=== PATIENT | female | born 1965 | race Caucasian/White ===

== ENCOUNTER 2018-02-26 12:43 | Outpatient (CLI) | payer BC | END 2018-02-26 12:44 | disposition home or self-care (01) | LOC: BICULT 12:43 | PROVIDERS: ATTEND Internal Medicine | DX: R10.11 Right upper quadrant pain (principal); R74.8 Abnormal levels of other serum enzymes; K76.0 Fatty (change of) liver, not elsewhere classified | CPT/HCPCS: 76705 ==

== ENCOUNTER 2018-05-18 15:16 | Inpatient (IN) | payer BC ==
[2018-05-18] MEDS ORDERED: Ketorolac Tromethamine 30 MG/ML VIAL ONE (15:54)
--- NOTE | 2018-05-18 16:12 | RAD ---
TWO VIEWS OF THE LEFT HIP 05/18/18 COMPARISON: None. HISTORY: Left hip pain and infection diagnosed yesterday. FINDINGS: Two views left hip shows no evidence of acute fracture or dislocation. No degenerative changes are se en. No soft tissue swelling is present. IMPRESSION: Unremarkable exam. POS: [facility]
[2018-05-18 16:26] LABS: #Lymphocytes 1.3 thou/uL (1.20-3.40); #Monocytes 0.9 thou/uL (0.11-0.59); #Neutrophils 13.9 thou/uL (1.40-6.50); %Basophils 0.1 % (0.0-1.0); %Eosinophils 0.1 % (0.0-10.0); %Lymphocytes 8.1 % (21.0-51.0); %Monocytes 5.3 % (0.0-10.0); %Neutrophils 86.4 % (42.0-75.0); Hemoglobin 12.4 g/dL (12.0-16.0); Mean Corpuscular HGB CONC 33.3 g/dL (32.0-36.0); Mean Corpuscular Hemoglobin 30.8 pg (27.0-31.0); Mean Corpuscular Volume 92.4 fL (78.0-98.0); Platelet Count 167 thou/uL (130-400); RBC Distribution Width 12.4 % (11.5-14.5); Red Blood Cell (RBC) Count 4.04 mill/uL (4.20-5.40); White Blood Cell (WBC) Count 16.1 thou/uL (4.8-10.8)
[2018-05-18 16:50] LABS: ALT (SGPT) 41 U/L (8-55); AST (SGOT) 28 U/L (5-34); Albumin 4.1 g/dL (3.5-5.0); Alkaline Phosphatase 69 U/L (40-150); Anion Gap 13 mmol/L (10-20); BHCG - Serum Negative (NEGATIVE); BUN (Urea Nitrogen) 13 mg/dL (9.8-20.1); Bilirubin, Total 0.6 mg/dL (0.2-1.2); Calc. Creatinine Clearance 0 mL/min (70-130); Calcium 9.3 mg/dL (7.8-10.44); Carbon Dioxide 23 mmol/L (22-29); Chloride 102 mmol/L (98-107); Estimated GFR-MDRD 88; Globulin 3.4 g/dL (2.4-3.5); Glucose 138 mg/dL (70-105); Potassium 3.8 mmol/L (3.5-5.1); Pregs Control Background? CLEAR/WHITE (CLR/WHITE); Pregs Control Bar Appear? YES (CONTROL BAR); Protein, Total 7.5 g/dL (6.0-8.3); Sodium 134 mmol/L (136-145)
[2018-05-18] MEDS ORDERED: Piperacillin/Tazobactam 4.5 GM VIAL ONE (17:25)
[2018-05-18] MEDS ORDERED: Acetaminophen 325 MG TAB PO PRN (20:18)
[2018-05-18] MEDS ORDERED: HYDROcodone/Acetaminophen 5/325 mg Tablet PO PRN (20:18)
[2018-05-18] MEDS ORDERED: Ondansetron PF 4 MG/2 ML Vial IVP PRN (20:18)
[2018-05-18] MEDS ORDERED: Sodium Chloride 0.9% 1,000 ML IV SCH (20:18)
[2018-05-18] MEDS ORDERED: Ondansetron ODT 4 MG TAB SL PRN (20:18)
[2018-05-18] MEDS ORDERED: Ketorolac Tromethamine 30 MG/ML VIAL IVP PRN (20:19)
[2018-05-18 21:25] VITALS: BMI 25.0
[2018-05-18] MEDS: HYDROcodone/Acetaminophen 5/325 mg Tablet PO PRN (21:39)
[2018-05-18] MEDS ORDERED: Piperacillin/Tazobactam 3.375 GM in Sodium Chloride 0.9% 100 ML IVPB SCH (23:59)
[2018-05-19] MEDS ORDERED: Piperacillin/Tazobactam 3.375 GM in Sodium Chloride 0.9% 100 ML IVPB SCH (01:00)
[2018-05-19] MEDS ORDERED: Vancomycin HCl 1 GM in Premix Bag 1 BAG IVPB SCH (04:00)
[2018-05-19] MEDS: HYDROcodone/Acetaminophen 5/325 mg Tablet PO PRN (04:01)
[2018-05-19 05:40] LABS: #Lymphocytes 1.3 thou/uL (1.20-3.40); #Monocytes 0.6 thou/uL (0.11-0.59); #Neutrophils 8.9 thou/uL (1.40-6.50); %Basophils 0.2 % (0.0-1.0); %Eosinophils 0.1 % (0.0-10.0); %Lymphocytes 12.4 % (21.0-51.0); %Monocytes 5.2 % (0.0-10.0); %Neutrophils 82.1 % (42.0-75.0); Hemoglobin 10.7 g/dL (12.0-16.0); Mean Corpuscular HGB CONC 33.6 g/dL (32.0-36.0); Mean Corpuscular Volume 92.3 fL (78.0-98.0); Mean Platelet Volume 10.1 fL (7.4-10.4); Platelet Count 136 thou/uL (130-400); RBC Distribution Width 12.2 % (11.5-14.5); Red Blood Cell (RBC) Count 3.46 mill/uL (4.20-5.40); White Blood Cell (WBC) Count 10.8 thou/uL (4.8-10.8)
[2018-05-19] MEDS ORDERED: VANCOMYCIN IVPB SCH (10:30)
[2018-05-19] MEDS: Piperacillin/Tazobactam 3.375 GM in Sodium Chloride 0.9% 100 ML IVPB SCH ×3 (10:53→21:39)
[2018-05-19] MEDS ORDERED: Acetaminophen 325 MG TAB PO PRN (14:31)
[2018-05-19] MEDS: Ibuprofen 200 MG TAB PO PRN ×2 (14:37→20:32)
[2018-05-19] MEDS: Vancomycin HCl 1 GM in Premix Bag 1 BAG IVPB SCH (15:32)
[2018-05-19] MEDS ORDERED: HYDROcodone/Acetaminophen 5/325 mg Tablet PO PRN (18:05)
[2018-05-19] MEDS ORDERED: Gemfibrozil 600 MG TAB PO SCH (21:00)
[2018-05-19] MEDS ORDERED: metFORMIN 500 MG TAB PO SCH (21:00)
[2018-05-19] MEDS ORDERED: Venlafaxine HCl XR 150 MG CAP PO SCH (21:00)
[2018-05-19] MEDS ORDERED: Atorvastatin Calcium 20 MG TAB PO SCH (21:00)
[2018-05-20] MEDS: Piperacillin/Tazobactam 3.375 GM in Sodium Chloride 0.9% 100 ML IVPB SCH ×3 (03:15→17:11)
[2018-05-20] MEDS: Vancomycin HCl 1 GM in Premix Bag 1 BAG IVPB SCH ×2 (04:21→15:45)
[2018-05-20 05:34] LABS: #Eosinphils 0.1 thou/uL (0.0-0.7); #Lymphocytes 1.7 thou/uL (1.20-3.40); #Monocytes 0.6 thou/uL (0.11-0.59); #Neutrophils 6.6 thou/uL (1.40-6.50); %Basophils 0.3 % (0.0-1.0); %Eosinophils 1.6 % (0.0-10.0); %Lymphocytes 18.8 % (21.0-51.0); %Monocytes 6.5 % (0.0-10.0); %Neutrophils 72.7 % (42.0-75.0); Hemoglobin 10.8 g/dL (12.0-16.0); Mean Corpuscular HGB CONC 35.3 g/dL (32.0-36.0); Mean Corpuscular Hemoglobin 32.3 pg (27.0-31.0); Mean Corpuscular Volume 91.4 fL (78.0-98.0); Mean Platelet Volume 10.1 fL (7.4-10.4); Platelet Count 140 thou/uL (130-400); Red Blood Cell (RBC) Count 3.34 mill/uL (4.20-5.40)
[2018-05-20 05:51] LABS: Hemoglobin A1c 5.9 % (4.0-6.0)
--- NOTE | 2018-05-20 07:52 | HP ---
CHIEF COMPLAINT ON ADMISSION: Left thigh cellulitis. HISTORY OF PRESENT ILLNESS: The patient is a 52-year-old female, who had ran into her mother's dresser 2 days prior to admission. She injured her left hip severely, but did not seek medical attention until the following day when she was seen out at [facility] ER visit. She was diagnosed with cellulitis and placed on Keflex. She continued to worsen to the point where she finally came into the ER on the day of admission having extreme erythema and barely able to walk on the left hip. The left hip has developed significantly with swelling, erythema, heat, and the patient has developed fever. She does not know when her last tetanus shot was. She does not have a history of prior cellulitis or abscesses. X-ray in the ER failed to show any trauma to the left hip. CBC noted the white count to be 16,000. She was admitted for failure of outpatient treatment of left hip cellulitis. PAST MEDICAL HISTORY: Includes borderline diabetes, controlled mainly with diet. She does have a history of dyslipidemia with high cholesterol and high triglycerides. PAST SURGICAL HISTORY: Includes hysterectomy. PSYCHIATRIC HISTORY: She has no previous psychiatric history. 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 She denies drug or alcohol use. She has no smoking history. ALLERGIES: SHE HAS NO KNOWN DRUG ALLERGIES. CURRENT MEDICATIONS: Include the aforementioned Keflex 500 q.i.d. REVIEW OF SYSTEMS: GENERAL: Admits to fever, chills, and malaise. HEENT: Denies any sores or drainage from eyes, ears, nose, or throat. CARDIOVASCULAR: Denies chest pain or palpitations. RESPIRATORY: Denies any cough or dyspnea. GASTROINTESTINAL: Denies any nausea, vomiting, or diarrhea. GENITOURINARY: Denies any dysuria, blood in urine or stool. SKIN: Has the aforementioned rash noted on her left hip. MUSCULOSKELETAL: Severe pain also in the left hip (x-ray negative). NEUROLOGIC: Denies any altered mentation, headaches, blurred vision, or paresthesia, anesthesia. ENDOCRINE: Denies any swelling of any lymphatics. No enlargement or bruising. PHYSICAL EXAMINATION: At the time of admission; VITAL SIGNS: Blood pressure 118/70, pulse 107, respirations 20, temperature 99.1, pain scale 10/10 regarding the left hip, and O2 sat 99% on room air. GENERAL: This is a well-developed and well-nourished female, alert, oriented, and cooperative. HEENT: Normocephalic and atraumatic. Pupils equal, round, and reactive to light. Extraocular muscles are intact. TMs, nares, and pharynx are clear. NECK: Supple. Trachea midline. CHEST: Clear to auscultation. HEART: Regular rate and rhythm. No murmur. BREASTS: Deferred. ABDOMEN: Soft and nontender without organomegaly. GENITOURINARY: Deferred. EXTREMITIES: Without clubbing, cyanosis, or edema. SKIN: Shows the aforementioned left hip erythema with heat in . NEUROLOGIC: Cranial nerves are intact. Sensory exam is grossly intact. Mental status is nonfocal, at baseline. Unable to test gait and cerebellar function at this time. LABORATORY DATA: WBCs initially 16,000 with a left shift. X-ray of the left hip unremarkable. ASSESSMENT: 1. Left hip cellulitis, having failed outpatient treatment. 2. Borderline diabetes. 3. History of dyslipidemia. PLAN: The patient's blood cultures have been obtained. She will be maintain on Zosyn and vancomycin on scheduled basis and serially be examined. She will also be provided with pain management. Job ID: [id number]
[2018-05-20] MEDS: Ibuprofen 200 MG TAB PO PRN (12:13)
[2018-05-20 15:29] LABS: Vancomycin, Trough 7.1 ug/mL
[2018-05-20 16:17] VITALS: BP 114/73; TEMP 99.3
[2018-05-20] MEDS ORDERED: Vancomycin HCl 1 GM in Premix Bag 1 BAG IVPB SCH (23:59)
== END 2018-05-20 18:23 | disposition home or self-care (01) | DRG 603 ==
LOC: ERS 15:16 → T4-B 18:14
PROVIDERS: ADMIT Specialist; ATTEND Specialist
DX: L03.116 Cellulitis of left lower limb (principal); R73.03 Prediabetes; E78.5 Hyperlipidemia, unspecified; S79.812A Other specified injuries of left hip, initial encounter; W22.03XA Walked into furniture, initial encounter
CPT/HCPCS: 36415; 80053; 80202; 82465; 83036; 83605; 84703; 85025; 85652; 86140; 87040; 96365; 96367; 96375; J1885; J2543; J3370; J7050

== ENCOUNTER 2018-05-24 11:31 | Inpatient (IN) | payer BC ==
[2018-05-24] MEDS ORDERED: Acetaminophen 325 MG TAB PO PRN (12:22)
[2018-05-24 12:30] VITALS: BMI 24.0
[2018-05-24] MEDS ORDERED: Vancomycin HCl 1 GM in Premix Bag 1 BAG IVPB SCH (12:30)
[2018-05-24 12:47] LABS: #Basophils 0.1 thou/uL (0.0-0.2); #Eosinphils 0.2 thou/uL (0.0-0.7); #Lymphocytes 2.2 thou/uL (1.20-3.40); #Monocytes 0.8 thou/uL (0.11-0.59); #Neutrophils 6.6 thou/uL (1.40-6.50); %Basophils 0.8 % (0.0-1.0); %Eosinophils 2.2 % (0.0-10.0); %Lymphocytes 22.2 % (21.0-51.0); %Monocytes 7.6 % (0.0-10.0); %Neutrophils 67.2 % (42.0-75.0); Hemoglobin 11.6 g/dL (12.0-16.0); Mean Corpuscular HGB CONC 31.9 g/dL (32.0-36.0); Mean Corpuscular Hemoglobin 29.3 pg (27.0-31.0); Mean Corpuscular Volume 91.7 fL (78.0-98.0); Mean Platelet Volume 8.1 fL (7.4-10.4); Platelet Count 310 thou/uL (130-400); RBC Distribution Width 12.3 % (11.5-14.5); Red Blood Cell (RBC) Count 3.95 mill/uL (4.20-5.40); White Blood Cell (WBC) Count 9.9 thou/uL (4.8-10.8)
[2018-05-24 13:15] LABS: ALT (SGPT) 59 U/L (8-55); AST (SGOT) 39 U/L (5-34); Albumin 3.8 g/dL (3.5-5.0); Alkaline Phosphatase 72 U/L (40-150); Anion Gap 12 mmol/L (10-20); BUN (Urea Nitrogen) 13 mg/dL (9.8-20.1); Bilirubin, Total 0.2 mg/dL (0.2-1.2); Calc. Creatinine Clearance 87 mL/min (70-130); Calcium 10.1 mg/dL (7.8-10.44); Carbon Dioxide 29 mmol/L (22-29); Chloride 101 mmol/L (98-107); Estimated GFR-MDRD 78; Globulin 3.5 g/dL (2.4-3.5); Glucose 179 mg/dL (70-105); Potassium 4.3 mmol/L (3.5-5.1); Protein, Total 7.3 g/dL (6.0-8.3); Sodium 138 mmol/L (136-145)
[2018-05-24] MEDS ORDERED: Heparin 1,000 UNITS/ML VIAL ONE (14:31)
[2018-05-24] MEDS ORDERED: Piperacillin/Tazobactam 3.375 GM in Sodium Chloride 0.9% 100 ML IVPB SCH ×2 (15:00→18:00)
--- NOTE | 2018-05-24 15:21 | ULT ---
LEFT HIP ULTRASOUND: Date: 05/24/18 HISTORY: Recent trauma. Bruising and swelling. Erythema. COMPARISON: None. TECHNIQUE: Targeted sonographic imaging of the left hip was performed. There is evidence of soft tissue swelling and edema. There is no evidence of a drainable abscess or fluid collection. IMPRESSION: No evidence of abscess or drainable fluid collection. There is evidence of soft tissue swelling and e lianna. POS: [facility]
[2018-05-24 15:59] LABS: Bilirubin Negative (Negative); Blood, Urine Negative (Negative); Clarity CLEAR (Clear); Glucose, Urine (Dipstick) Negative (Negative); Leukocyte Negative (Negative); Nitrite Negative (Negative); Protein, Urine (Dipstick) Negative (Neg-Trace); Specific Gravity, Urine 1.006 (1.002-1.036); Urobilinogen 0.2 mg/dL (0.2-1.0); pH, Urine 6.5 (5.0-9.0)
[2018-05-24 16:00] LABS: Bacteria/HPF None Seen HPF (None Seen); Hyaline Casts/LPF 0-3 HYALINE CAST LPF (0-3 Hyaline); RBC/HPF 0-3 HPF (0-3); Squamous Epithelial None Seen HPF (0-3); WBC/HPF None Seen HPF (0-3)
[2018-05-24] MEDS: Vancomycin HCl 1 GM in Premix Bag 1 BAG IVPB SCH (16:54)
[2018-05-24] MEDS: Piperacillin/Tazobactam 3.375 GM in Sodium Chloride 0.9% 100 ML IVPB SCH ×2 (17:16→23:18)
[2018-05-24] MEDS: Atorvastatin Calcium 20 MG TAB PO SCH (19:55)
[2018-05-24] MEDS: metFORMIN 500 MG TAB PO SCH (19:55)
[2018-05-24] MEDS: Fentanyl 100 MCG/2 ML VIAL SLOW IVP PRN (19:55)
--- NOTE | 2018-05-25 01:44 | HP ---
CHIEF COMPLAINT ON ADMISSION: Cellulitis, left hip. HISTORY OF PRESENT ILLNESS: The patient is a 52-year-old female, who has had a left hip infection that has been ongoing for approximately 10 days. She was seen last week in the emergency room of [facility] where she was placed on Keflex. The lesion continued to worsen, so she came and saw Dr. Jack. She returned to the ER and was admitted over the weekend. During that hospitalization, she received vancomycin and Zosyn and had a very robust response to the antibiotics. It was thought that she could be reattempted outpatient treatment with Omnicef 300 b.i.d. and clindamycin 300 t.i.d. during the week after discharge; however, the patient has continued to worsen with return of fever, return of pain. The actual size of the cellulitis has shrunk, but it has hardened and become impossible to live with due to the pain and recurrent fever. She was seen on the day of admission in Dr. Jack' office, where it was obvious due to her frustration that she needed to be rehospitalized and at this admission treated with a more complete round of IV antibiotics. PAST MEDICAL HISTORY: Significant for borderline diabetes, controlled mainly with diet and dyslipidemia. PAST SURGICAL HISTORY: Includes total hysterectomy. PSYCHIATRIC HISTORY: There is no psychiatric history. 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 She denies drug or alcohol use. She has no smoking history. ALLERGIES: SHE HAS NO KNOWN DRUG ALLERGIES. MEDICATIONS ON ADMISSION: Included, 1. Omnicef 300 b.i.d. 2. Clindamycin 300 t.i.d. 3. Simvastatin 40 mg at bedtime. 4. Effexor 150 mg daily. 5. Metformin 1000 mg at bedtime. 6. Lopid 600 mg 2 every day. 7. Ibuprofen 400 mg every 6 hours p.r.n. fever. REVIEW OF SYSTEMS: GENERAL: She has had fever, pain, malaise, and generalized weakness. HEENT: Positive for headache. Denies drainage or sores in the ears, nose, or throat. CHEST: Denies cough or shortness of breath. CARDIOVASCULAR: Denies palpitations or chest pain. GASTROINTESTINAL: Denies nausea, vomiting, or diarrhea. GENITOURINARY: Denies dysuria, frequency, or blood in urine or stool. MUSCULOSKELETAL: The patient's left hip pain has significantly improved since the previous hospitalization and there are no other acute joints with pain or swelling. SKIN: Large area of erythema, heat, tenderness, and swelling over the left hip. It has been marked with permanent marker and really shows less overall size from the previous marcations, it is much harder, firm and more tender than it was before and there was concern for abscess formation. NEUROLOGIC: No confusion, paresthesias, dysthesia, or hypesthesia. PHYSICAL EXAMINATION: At the time of admission; VITAL SIGNS: Blood pressure 105/69, pulse 75, respirations 16, temperature 98, and 97% O2 sat on room air. GENERAL: This is a well-developed and well-nourished female, alert, oriented, and cooperative. HEENT: Normocephalic and atraumatic. Pupils equal, round, and reactive to light. TMs, nares, and pharynx are clear. NECK: Supple. Trachea midline. CHEST: Clear to auscultation. BREASTS: Deferred. HEART: Regular rate and rhythm without murmur. ABDOMEN: Soft and nontender without organomegaly. GENITOURINARY: Deferred. EXTREMITIES: Left hip with swollen area of erythema, heat, tenderness, and induration concerning for possible abscess formation. Remainder of upper and right lower extremity without clubbing, cyanosis, or edema. Demonstrates normal range of motion, pain free. NEUROLOGIC: Cranial nerves are intact. Gait is painful using the left hip. Sensory exam is intact. Mental status is clear. LABORATORY DATA: Lab work is pending at the time of admission. ASSESSMENT: 1. Recurrent cellulitis of left hip, resistant to outpatient treatment. 2. Noninsulin-dependent diabetes. PLAN: Will be rehospitalized with utilization of IV vancomycin and Zosyn. Serial reevaluation and ultrasound of the swollen tissue to assess for abscess formation. Job ID: [id number] [facility]
[2018-05-25] MEDS ORDERED: Vancomycin HCl 1 GM in Premix Bag 1 BAG IVPB SCH (02:00)
[2018-05-25] MEDS: Vancomycin HCl 1 GM in Premix Bag 1 BAG IVPB SCH ×2 (03:23→15:56)
[2018-05-25] MEDS: Fentanyl 100 MCG/2 ML VIAL SLOW IVP PRN ×2 (03:25→20:30)
[2018-05-25] MEDS: Piperacillin/Tazobactam 3.375 GM in Sodium Chloride 0.9% 100 ML IVPB SCH ×4 (05:32→22:59)
[2018-05-25 06:20] LABS: #Eosinphils 0.3 thou/uL (0.0-0.7); #Lymphocytes 2.4 thou/uL (1.20-3.40); #Monocytes 0.8 thou/uL (0.11-0.59); %Basophils 0.2 % (0.0-1.0); %Eosinophils 2.7 % (0.0-10.0); %Lymphocytes 25.1 % (21.0-51.0); %Monocytes 8.5 % (0.0-10.0); %Neutrophils 63.6 % (42.0-75.0); Hemoglobin 11.7 g/dL (12.0-16.0); Mean Corpuscular Hemoglobin 29.5 pg (27.0-31.0); Mean Corpuscular Volume 92.2 fL (78.0-98.0); Mean Platelet Volume 8.5 fL (7.4-10.4); Platelet Count 308 thou/uL (130-400); RBC Distribution Width 12.3 % (11.5-14.5); Red Blood Cell (RBC) Count 3.97 mill/uL (4.20-5.40); White Blood Cell (WBC) Count 9.4 thou/uL (4.8-10.8)
[2018-05-25] MEDS: Venlafaxine HCl XR 150 MG CAP PO SCH (08:00)
[2018-05-25] MEDS: Atorvastatin Calcium 20 MG TAB PO SCH (20:29)
[2018-05-25] MEDS: metFORMIN 500 MG TAB PO SCH (20:30)
[2018-05-26] MEDS: Piperacillin/Tazobactam 3.375 GM in Sodium Chloride 0.9% 100 ML IVPB SCH ×4 (04:07→23:33)
[2018-05-26 04:17] LABS: Vancomycin, Trough 11.3 ug/mL
[2018-05-26 04:24] LABS: #Eosinphils 0.2 thou/uL (0.0-0.7); #Lymphocytes 2.9 thou/uL (1.20-3.40); #Monocytes 0.8 thou/uL (0.11-0.59); #Neutrophils 5.1 thou/uL (1.40-6.50); %Basophils 0.2 % (0.0-1.0); %Eosinophils 2.6 % (0.0-10.0); %Lymphocytes 32.3 % (21.0-51.0); %Monocytes 8.5 % (0.0-10.0); %Neutrophils 56.5 % (42.0-75.0); Hemoglobin 12.2 g/dL (12.0-16.0); Mean Corpuscular HGB CONC 32.3 g/dL (32.0-36.0); Mean Corpuscular Hemoglobin 29.5 pg (27.0-31.0); Mean Corpuscular Volume 91.5 fL (78.0-98.0); Platelet Count 330 thou/uL (130-400); RBC Distribution Width 12.1 % (11.5-14.5); Red Blood Cell (RBC) Count 4.12 mill/uL (4.20-5.40)
[2018-05-26] MEDS: Vancomycin HCl 1 GM in Premix Bag 1 BAG IVPB SCH (04:58)
[2018-05-26] MEDS: Vancomycin HCl 1.25 GM in Sodium Chloride 0.9% 250 ML 250 ML IVPB SCH ×2 (04:59→16:09)
[2018-05-26] MEDS: Venlafaxine HCl XR 150 MG CAP PO SCH (08:02)
[2018-05-26] MEDS ORDERED: Lorazepam 2 MG/ML VIAL ONE (09:25)
[2018-05-26] MEDS ORDERED: Lorazepam 2 MG/ML VIAL SLOW IVP SCH (09:30)
--- NOTE | 2018-05-26 11:06 | SPC ---
RIGHT UPPER EXTREMITY PICC LINE INSERTION: HISTORY: Septic joint in need of long-term IV antibiotics. TECHNIQUE: Informed consent was obtained from the patient. The right upper extremity was prepped and draped in the usual sterile manner. A 1% Lidocaine solution was used to anesthetize the overlying soft tissues . A small dermatotomy was made. IV contrast was introduced and the right basilic vein was localized . The right basilic vein was accessed using a micropuncture set. An 0.018 wire was introduced. A p eelaway sheath was placed. Over the wire and through the peelaway sheath, a 5 Tunisian PICC line was c ut to 41 cm. Distal tip was placed at the SVC/right atrial junction. Radiation dosimetry is 1.7 minutes of fluoroscopy and DAP of 1.49uGy*^ cm2. IMPRESSION: Successful placement of a right upper extremity PICC line. POS: [facility]
[2018-05-26] MEDS ORDERED: Iopamidol 300 61% 30 ML VIAL ONE (13:46)
[2018-05-26] MEDS ORDERED: Fluconazole 100 MG TAB PO SCH (19:00)
[2018-05-26] MEDS: metFORMIN 500 MG TAB PO SCH (20:08)
[2018-05-26] MEDS: Atorvastatin Calcium 20 MG TAB PO SCH (20:08)
[2018-05-26] MEDS: Fentanyl 100 MCG/2 ML VIAL SLOW IVP PRN (20:46)
[2018-05-27] MEDS ORDERED: cefTRIAXone\\ROCEPHIN 2 GM in Sodium Chloride 0.9% 100 ML IVPB SCH (04:00)
[2018-05-27] MEDS: Vancomycin HCl 1.25 GM in Sodium Chloride 0.9% 250 ML 250 ML IVPB SCH ×2 (05:04→14:57)
[2018-05-27] MEDS: Piperacillin/Tazobactam 3.375 GM in Sodium Chloride 0.9% 100 ML IVPB SCH ×3 (06:38→16:55)
[2018-05-27] MEDS: Venlafaxine HCl XR 150 MG CAP PO SCH (08:32)
[2018-05-27 14:42] LABS: Vancomycin, Trough 20.2 ug/mL
[2018-05-27 16:17] VITALS: BP 139/83; TEMP 98.7
--- NOTE | 2018-05-31 07:57 | PQF ---
DAE JJ MICHAEL E MD [id number] CLINICAL DOCUMENTATION CLARIFICATION FORM: POST DISCHARGE Addendum to original discharge summary date: ____ Late entry note date: __ DATE: 05/31/18 ATTN: DR. HERNANDEZ Please exercise your independent, professional judgment in responding to the clarification form. Clinical indicators are provided on the bottom of this form for your review Please check appropriate box(s): Cellulitis Left Hip: [ ] Due to Diabetes [ x ] Other diagnosis contusion of hip [ ] Unable to determine In addition, please specify: Present on Admission (POA): [ x ] Yes [ ] No [ ] Unable to determine For continuity of documentation, please document condition throughout progress notes and discharge summary. Thank You. CLINICAL INDICATORS - SIGNS / SYMPTOMS / LABS: 12/7 H&P - Documentation of Cellulitis left hip RISKS: Diabetes TREATMENT: /7 H&P - IV Antibiotic - Vancomycin and Zosyn 2014 [employer]. All Rights Reserved Delilah Tomlinson, [facility], PROCESS [email or web address]-H [email or web address] [phone] (This form is maintained as a part of the permanent medical record) [facility]
== END 2018-05-27 17:10 | disposition home or self-care (01) | DRG 603 ==
LOC: T4-A 11:31
PROVIDERS: ADMIT Specialist; ATTEND Specialist
PROC: 02HV33Z Insertion of Infusion Device into Superior Vena Cava, Percutaneous Approach (ICD-10-PCS; principal; 2018-05-26)
DX: L03.116 Cellulitis of left lower limb (principal); E11.9 Type 2 diabetes mellitus without complications; E78.5 Hyperlipidemia, unspecified; Z79.84 Long term (current) use of oral hypoglycemic drugs; S70.02XA Contusion of left hip, initial encounter; X58.XXXA Exposure to other specified factors, initial encounter
CPT/HCPCS: 36415; 36416; 36569; 76999; 80053; 80202; 81001; 85025; 87040; C1751; J1644; J2060; J2543; J3010; J3370; J7050

== ENCOUNTER 2018-06-20 10:11 | Day surgery (SDC) | payer BC ==
[2018-06-20 10:41] LABS: #Basophils 0.1 thou/uL (0.0-0.2); #Eosinphils 0.3 thou/uL (0.0-0.7); #Lymphocytes 1.9 thou/uL (1.20-3.40); #Monocytes 0.5 thou/uL (0.11-0.59); #Neutrophils 2.6 thou/uL (1.40-6.50); %Basophils 1.6 % (0.0-1.0); %Eosinophils 4.9 % (0.0-10.0); %Lymphocytes 36.3 % (21.0-51.0); %Monocytes 8.5 % (0.0-10.0); %Neutrophils 48.6 % (42.0-75.0); Hemoglobin 12.4 g/dL (12.0-16.0); Mean Corpuscular HGB CONC 33.8 g/dL (32.0-36.0); Mean Corpuscular Hemoglobin 30.3 pg (27.0-31.0); Mean Corpuscular Volume 89.5 fL (78.0-98.0); Platelet Count 205 thou/uL (130-400); RBC Distribution Width 13.5 % (11.5-14.5); Red Blood Cell (RBC) Count 4.11 mill/uL (4.20-5.40); White Blood Cell (WBC) Count 5.3 thou/uL (4.8-10.8)
[2018-06-20 10:57] LABS: ALT (SGPT) 49 U/L (8-55); AST (SGOT) 35 U/L (5-34); Albumin 4.5 g/dL (3.5-5.0); Alkaline Phosphatase 88 U/L (40-150); Anion Gap 14 mmol/L (10-20); BUN (Urea Nitrogen) 18 mg/dL (9.8-20.1); Bilirubin, Total 0.2 mg/dL (0.2-1.2); Calc. Creatinine Clearance 0 mL/min (70-130); Carbon Dioxide 25 mmol/L (22-29); Chloride 104 mmol/L (98-107); Estimated GFR-MDRD 86; Globulin 3.5 g/dL (2.4-3.5); Glucose 93 mg/dL (70-105); Potassium 4.3 mmol/L (3.5-5.1); Sodium 139 mmol/L (136-145)
[2018-06-20 11:16] LABS: Vancomycin, Trough 6.7 ug/mL
== END 2018-06-20 15:47 | disposition home or self-care (01) ==
LOC: ONC/OP 10:11
PROVIDERS: ATTEND Internal Medicine Infectious Disease
DX: L03.90 Cellulitis, unspecified (principal); Z79.82 Long term (current) use of aspirin
CPT/HCPCS: 36592; 80053; 80202; 85025

== ENCOUNTER 2018-06-21 10:28 | Day surgery (SDC) | payer BC ==
[2018-06-21 11:31] LABS: Vancomycin, Trough 18.9 ug/mL
== END 2018-06-21 15:44 | disposition home or self-care (01) ==
LOC: ONC/OP 10:28
PROVIDERS: ATTEND Internal Medicine Infectious Disease
DX: L03.90 Cellulitis, unspecified (principal)
CPT/HCPCS: 36592; 80202

== ENCOUNTER 2018-06-24 11:03 | Outpatient (CLI) | payer BC ==
[2018-06-24] MEDS ORDERED: ISOVUE-370 76%-LOCM 1 ML ONE (12:00)
--- NOTE | 2018-06-24 13:10 | CT ---
PELVIS CT WITH CONTRAST CT ABDOMEN WITH CONTRAST LIMITED: Date: 06/24/18 INDICATION: Cellulitis. TECHNIQUE: Contrast enhanced CT of the abdomen from the level of the superior aspect of the kidneys performed th rough the level of the proximal thighs with coronal reformatted imaging. FINDINGS: There is abnormal reticulated density of the left lateral gluteal subcutaneous tissues. No drainable abscess. There is slight overlying skin thickening. No soft tissue gas. The imaged low abdominal and pelvic compartments reveal no acute abnormality. No abdominal or pelvic ascites is seen. There is no acute osseous pathology. IMPRESSION: Abnormal increased density of the left lateral gluteal soft tissues at the site of clinical concern, which does correlate with the history of cellulitis. There is no drainable abscess. As necessary, jef ging follow-up may be obtained for continued assessment. POS: [facility]
== END 2018-06-24 11:04 | disposition home or self-care (01) ==
LOC: BICCT 11:03
PROVIDERS: ATTEND Internal Medicine Infectious Disease
DX: S30.0XXA Contusion of lower back and pelvis, initial encounter (principal); L03.119 Cellulitis of unspecified part of limb; M79.9 Soft tissue disorder, unspecified
CPT/HCPCS: 72193; 96523

== ENCOUNTER → 2018-06-24 | Day surgery (SDC) | payer BC | LOC: ONC/OP 15:59 | PROVIDERS: ATTEND Internal Medicine Infectious Disease | DX: Z45.2 Encounter for adjustment and management of vascular access device (principal); Z79.84 Long term (current) use of oral hypoglycemic drugs; Z79.899 Other long term (current) drug therapy | CPT/HCPCS: 96523 ==

== ENCOUNTER 2020-04-30 10:49 | Outpatient (CLI) | payer BC ==
--- NOTE | 2020-04-30 13:55 | MMO ---
Bilateral MAMMO Bilat Screen [facility]. CLINICAL HISTORY: Patient is 54 years old and is seen for screening. The patient has no family history of breast cancer. The patient has no personal history of cancer. The patient has a history of Breast reduction in September, - PT HAD IMPLANTS REMOVED AND REDUCTION OCTOBER 01, right Implants in 2009 - replaced Rt only and bilateral Implants in 2004. VIEWS: The views performed were: bilateral craniocaudal with tomosynthesis and bilateral mediolateral oblique with tomosynthesis. FILMS COMPARED: The present examination has been compared to prior imaging studies performed at [facility] on 07/23/2015 and 11/29/2016. This study has been interpreted with the assistance of computer-aided detection. MAMMOGRAM FINDINGS: There are scattered fibroglandular densities. Finding 1: There are stable benign appearing calcifications seen in both breasts. Finding 2: Evidence for fat necrosis. There are no suspicious masses, suspicious calcifications, or new areas of architectural distortion. IMPRESSION: THERE IS NO MAMMOGRAPHIC EVIDENCE OF MALIGNANCY. A ROUTINE FOLLOW-UP MAMMOGRAM IN 1 YEAR IS RECOMMENDED. THE RESULTS OF THIS EXAM WERE SENT TO THE PATIENT. ACR BI-RADS Category 2 - Benign finding MAMMOGRAPHY NOTE: 1. A negative mammogram report should not delay a biopsy if a dominant of clinically suspicious mass is present. 2. Approximately 10% to 15% of breast cancers are not detected by mammography. 3. Adenosis and dense breasts may obscure an underlying neoplasm. Reported by: RONEN KEITH MD Electonically Signed: [id number]
== END 2020-04-30 10:50 | disposition home or self-care (01) ==
LOC: BICMAMMO 10:49
PROVIDERS: ATTEND Specialist
DX: Z12.31 Encounter for screening mammogram for malignant neoplasm of breast (principal); Z98.82 Breast implant status; Z98.890 Other specified postprocedural states
CPT/HCPCS: 77063; 77067

== ENCOUNTER 2020-07-27 09:28 | Outpatient (CLI) | payer BC ==
--- NOTE | 2020-07-27 09:58 | RAD ---
PA AND LATERAL VIEWS CHEST: HISTORY: Dyspnea. COMPARISON: 06/27/2014. FINDINGS: The heart size is normal. The lungs are expanded without lobar consolidation, pneumothoraces, or ple ural effusions. No acute osseous abnormalities are seen. IMPRESSION: No radiographic evidence of acute cardiopulmonary process. POS: [facility]
== END 2020-07-27 09:29 | disposition home or self-care (01) ==
LOC: BICRAD 09:28
PROVIDERS: ATTEND Internal Medicine Critical Care Medicine
DX: R06.00 Dyspnea, unspecified (principal)
CPT/HCPCS: 71046

== ENCOUNTER 2021-05-20 11:22 | Outpatient (CLI) | payer BC ==
[2021-05-20] MEDS ORDERED: Iopamidol 370 76% 100 ML VIAL ONE (12:18)
== END 2021-05-20 11:23 | disposition home or self-care (01) ==
LOC: CT 11:22
PROVIDERS: ATTEND Internal Medicine
DX: R10.11 Right upper quadrant pain (principal); R91.1 Solitary pulmonary nodule; K57.30 Diverticulosis of large intestine without perforation or abscess without bleeding; I31.3 Pericardial effusion (noninflammatory); Z90.49 Acquired absence of other specified parts of digestive tract
CPT/HCPCS: 74177; Q9967

== ENCOUNTER 2022-03-24 06:03 | Emergency (ER) | payer OTHER ==
[2022-03-24 06:53] LABS: Bilirubin Negative (Negative); Blood, Urine Negative (Negative); Clarity Clear (Clear); Glucose, Urine (Dipstick) Normal (Negative); Ketone, Urine Negative (Negative); Leukocyte Negative Leu/uL (Negative); Nitrite Negative (Negative); Protein, Urine (Dipstick) Negative (Neg-Trace); Urobilinogen Normal mg/dL (Less than 2); pH, Urine 7.5 (5.0-9.0)
[2022-03-24 07:39] LABS: ALT (SGPT) 11 U/L (8-55); AST (SGOT) 26 U/L (5-34); Albumin 4.3 g/dL (3.5-5.0); Alkaline Phosphatase 60 U/L (40-110); Anion Gap 15 mmol/L (10-20); BUN (Urea Nitrogen) 13 mg/dL (9.8-20.1); Bilirubin, Total 0.3 mg/dL (0.2-1.2); Calc. Creatinine Clearance 0 mL/min (70-130); Calcium 9.4 mg/dL (7.8-10.44); Carbon Dioxide 20 mmol/L (22-29); Chloride 106 mmol/L (98-107); Estimated GFR 100; Globulin 3.6 g/dL (2.4-3.5); Glucose 88 mg/dL (70-105); Lipase 13 U/L (8-78); Potassium 4.9 mmol/L (3.5-5.1); Protein, Total 7.9 g/dL (6.0-8.3); Sodium 136 mmol/L (136-145)
[2022-03-24] MEDS ORDERED: Ondansetron PF 4 MG/2 ML Vial ONE (07:57)
[2022-03-24] MEDS ORDERED: Ketorolac Tromethamine 30 MG/ML VIAL ONE (07:57)
[2022-03-24] MEDS ORDERED: Dicyclomine 20 MG TAB ONE (07:57)
[2022-03-24 08:05] LABS: #Basophils 0.1 thou/uL (0.0-0.2); #Eosinphils 0.2 thou/uL (0.0-0.7); #Lymphocytes 2.2 thou/uL (1.20-3.40); #Monocytes 0.4 thou/uL (0.11-0.59); #Neutrophils 2.3 thou/uL (1.40-6.50); %Basophils 1.4 % (0.0-1.0); %Eosinophils 3.8 % (0.0-10.0); %Lymphocytes 43.6 % (21.0-51.0); %Neutrophils 44.3 % (42.0-75.0); Hemoglobin 14.1 g/dL (12.0-16.0); Mean Corpuscular HGB CONC 32.7 g/dL (32.0-36.0); Mean Corpuscular Volume 94.9 fL (78.0-98.0); Mean Platelet Volume 9.2 fL (7.4-10.4); Platelet Count 179 thou/uL (130-400); RBC Distribution Width 12.4 % (11.5-14.5); Red Blood Cell (RBC) Count 4.54 mill/uL (4.20-5.40); White Blood Cell (WBC) Count 5.1 thou/uL (4.8-10.8)
[2022-03-24 08:24] LABS: ALT (SGPT) 12 U/L (8-55); AST (SGOT) 18 U/L (5-34); Albumin 4.7 g/dL (3.5-5.0); Alkaline Phosphatase 69 U/L (40-110); Anion Gap 14 mmol/L (10-20); BUN (Urea Nitrogen) 13 mg/dL (9.8-20.1); Bilirubin, Total 0.4 mg/dL (0.2-1.2); Calc. Creatinine Clearance 0 mL/min (70-130); Calcium 9.9 mg/dL (7.8-10.44); Carbon Dioxide 24 mmol/L (22-29); Chloride 104 mmol/L (98-107); Estimated GFR 98; Glucose 84 mg/dL (70-105); Protein, Total 7.7 g/dL (6.0-8.3); Sodium 138 mmol/L (136-145)
[2022-03-24] MEDS ORDERED: Iopamidol 370 76% 100 ML VIAL ONE (09:18)
== END 2022-03-24 09:26 | disposition home or self-care (01) ==
LOC: ERS 06:03
DX: R10.31 Right lower quadrant pain (principal); E11.9 Type 2 diabetes mellitus without complications; E78.5 Hyperlipidemia, unspecified; E78.00 Pure hypercholesterolemia, unspecified
CPT/HCPCS: 74177; 80053; 81003; 83605; 83690; 87086; 93005; 96374; 96375; J1885; J2405; Q9967

== ENCOUNTER 2022-05-22 16:20 | Emergency (ER) | payer OTHER ==
[~2022-05-22 16:20] MED LIST: Iopamidol-370 76% 500 ML 1 ML ONE
[2022-05-22 17:01] LABS: #Eosinphils 0.1 thou/uL (0.0-0.7); #Lymphocytes 2.3 thou/uL (1.20-3.40); #Monocytes 0.5 thou/uL (0.11-0.59); #Neutrophils 3.7 thou/uL (1.40-6.50); %Basophils 0.2 % (0.0-1.0); %Eosinophils 1.3 % (0.0-10.0); %Lymphocytes 35.1 % (21.0-51.0); %Neutrophils 56.4 % (42.0-75.0); Hemoglobin 13.3 g/dL (12.0-16.0); Mean Corpuscular HGB CONC 33.6 g/dL (32.0-36.0); Mean Corpuscular Hemoglobin 31.4 pg (27.0-31.0); Mean Corpuscular Volume 93.3 fl (78.0-98.0); Mean Platelet Volume 9.1 fL (7.4-10.4); Platelet Count 166 10x3/uL (130-400); RBC Distribution Width 12.3 % (11.5-14.5); Red Blood Cell (RBC) Count 4.23 mill/uL (4.20-5.40); White Blood Cell (WBC) Count 6.6 10x3/uL (4.8-10.8)
[2022-05-22 17:21] LABS: ALT (SGPT) 16 U/L (8-55); AST (SGOT) 19 U/L (5-34); Albumin 4.5 g/dL (3.5-5.0); Alkaline Phosphatase 67 U/L (40-110); Anion Gap 14 mmol/L (10-20); BUN (Urea Nitrogen) 16 mg/dL (9.8-20.1); Bilirubin, Total 0.2 mg/dL (0.2-1.2); Calc. Creatinine Clearance 0 mL/min (70-130); Calcium 9.3 mg/dL (7.8-10.44); Carbon Dioxide 24 mmol/L (22-29); Chloride 104 mmol/L (98-107); Estimated GFR 62; Globulin 3.1 g/dL (2.4-3.5); Glucose 124 mg/dL (70-105); Lipase 46 U/L (8-78); Potassium 4.1 mmol/L (3.5-5.1); Protein, Total 7.6 g/dL (6.0-8.3); Sodium 138 mmol/L (136-145)
[2022-05-22] MEDS ORDERED: Ketorolac Tromethamine 30 MG/ML VIAL ONE ×2 (19:12→20:33)
[2022-05-22 19:35] LABS: Bilirubin Negative (Negative); Blood, Urine Negative (Negative); Clarity Clear (Clear); Glucose, Urine (Dipstick) Normal (Negative); Ketone, Urine 10 mg/dL (Negative); Leukocyte Negative Leu/uL (Negative); Nitrite Negative (Negative); Protein, Urine (Dipstick) Negative (Neg-Trace); Specific Gravity, Urine 1.012 (1.002-1.036); Urobilinogen Normal mg/dL (Less than 2); pH, Urine 6.5 (5.0-9.0)
== END 2022-05-22 21:23 | disposition home or self-care (01) ==
LOC: ERS 16:20
DX: K52.9 Noninfective gastroenteritis and colitis, unspecified (principal); E11.9 Type 2 diabetes mellitus without complications; E78.00 Pure hypercholesterolemia, unspecified; Z79.84 Long term (current) use of oral hypoglycemic drugs; Z79.899 Other long term (current) drug therapy
CPT/HCPCS: 36415; 74177; 80053; 81003; 83605; 83690; 85025; 87040; 96374; 96376; J1885; Q9967

== ENCOUNTER 2022-07-18 10:45 | Outpatient (CLI) | payer OTHER | END 2022-07-18 10:46 | disposition home or self-care (01) | LOC: BICCT 10:45 | PROVIDERS: ATTEND Internal Medicine | DX: Z13.89 Encounter for screening for other disorder (principal) | CPT/HCPCS: 71250 ==

== ENCOUNTER 2023-01-16 14:15 | Outpatient (CLI) | payer OTHER | END 2023-01-16 14:16 | disposition home or self-care (01) | LOC: BICMAMMO 14:15 | PROVIDERS: ATTEND Specialist | DX: N63.10 Unspecified lump in the right breast, unspecified quadrant (principal) | CPT/HCPCS: 77066; G0279 ==

== ENCOUNTER 2024-06-02 08:31 | Emergency (ER) | payer OTHER ==
[2024-06-02 09:09] LABS: #Basophils 0.04 10x3/uL (0.0-0.2); %Basophils 0.6 % (0.0-1.0); %Eosinophils 1.4 % (0.0-10.0); %Lymphocytes 24.9 % (21.0-51.0); %Monocytes 5.3 % (0.0-10.0); %Neutrophils 67.6 % (42.0-75.0); Hematocrit 37.1 % (36.0-47.0); Hemoglobin 12.4 g/dL (12.0-16.0); Mean Corpuscular HGB CONC 33.4 g/dL (32.0-36.0); Mean Corpuscular Hemoglobin 30.9 pg (27.0-31.0); Mean Corpuscular Volume 92.5 fL (78.0-98.0); Mean Platelet Volume 11.1 fL (7.4-10.4); Platelet Count 200 10x3/uL (130-400); RBC Distribution Width 13.7 % (11.5-14.5); Red Blood Cell (RBC) Count 4.01 mill/uL (4.20-5.40)
[2024-06-02 09:23] LABS: ALT (SGPT) 16 U/L (8-55); AST (SGOT) 20 U/L (5-34); Albumin 3.9 g/dL (3.5-5.0); Alkaline Phosphatase 66 U/L (40-110); Anion Gap 12 mmol/L (10-20); BUN (Urea Nitrogen) 18 mg/dL (9.8-20.1); Bilirubin, Total 0.4 mg/dL (0.2-1.2); CRP,High Sensitivity (Inhouse) 0.04 mg/dL (< or = 0.5); Calc. Creatinine Clearance 0 mL/min (70-130); Calcium 9.2 mg/dL (7.8-10.44); Carbon Dioxide 24 mmol/L (22-29); Chloride 108 mmol/L (98-107); Estimated GFR 101; Globulin 2.9 g/dL (2.4-3.5); Glucose 121 mg/dL (70-105); Potassium 3.9 mmol/L (3.5-5.1); Protein, Total 6.8 g/dL (6.0-8.3); Sodium 140 mmol/L (136-145)
[2024-06-02 11:08] LABS: MONO NEGATIVE CONTROL ZONE White (Negative) (White); MONO POSITIVE CONTROL Pink Line (Positive) (PINK/RED); Mononucleosis NEGATIVE (NEGATIVE)
== END 2024-06-02 12:22 | disposition home or self-care (01) ==
LOC: ERS 08:31
DX: M54.2 Cervicalgia (principal); H53.8 Other visual disturbances; J02.9 Acute pharyngitis, unspecified; R29.700 NIHSS score 0; E11.9 Type 2 diabetes mellitus without complications; Z79.899 Other long term (current) drug therapy
CPT/HCPCS: 36415; 70450; 70491; 71046; 80053; 85025; 86141; 86308; 87081; 87430